=== PATIENT | female | born 1980 | race African-American/Black ===

== ENCOUNTER 2022-11-27 17:09 | Emergency (ER) | payer MEDICAID ==
[~2022-11-27] VITALS: Ht 160 cm; Wt 62.8 kg
[2022-11-27 19:39] LABS: Basophils # (auto) 0.1 10 ^3/uL (0-0.2); Basophils % (auto) 0.5 % (0.0-2.0); Eosinophils # (auto) 0 10 ^3/uL (0-0.8); Eosinophils % (auto) 0.1 % (0.0-7.0); Hematocrit 38.9 % (36.0-46.0); Lymphocytes # (auto) 1.5 10 ^3/uL (0.4-5.4); Lymphocytes % (auto) 11.6 % (10.0-50.0); Mean Corpuscular Hemoglobin 31.5 pg (28.0-32.0); Mean Corpuscular Hgb Conc. 33.5 g/dL (32.0-36.0); Mean Corpuscular Volume 93.9 fL (80.0-100.0); Monocytes # (auto) 0.7 10 ^3/uL (0-1.3); Monocytes % (auto) 5.2 % (0.0-12.0); Neutrophils # (auto) 10.5 10 ^3/uL (1.6-8.6); Neutrophils % (auto) 82.6 % (37.0-80.0); Red Blood Cells 4.14 10^6/uL (4.0-5.20); Red Cell Distribution Width 13.6 % (11.8-14.3); White Blood Cell 12.7 10^3/uL (4.4-10.8)
[2022-11-27 19:58] LABS: Alanine Aminotransferase 15 U/L (7-40); Albumin 4.5 g/dL (3.2-4.8); Alkaline Phosphatase 75 U/L (46-116); Anion Gap 3 (5-15); Aspartate Aminotransferase 10 U/L (13-40); BUN/Creatinine Ratio 7.8 (10.0-20.0); Bilirubin, Total 0.7 mg/dL (0.2-1.0); Blood Urea Nitrogen 10 mg/dL (9-23); Calcium 9.4 mg/dL (8.7-10.4); Carbon Dioxide 28 mmol/L (20-30); Chloride 109 mmol/L (98-107); Glucose 131 mg/dL (74-106); Potassium 3.4 mmol/L (3.5-5.1); Sodium 140 mmol/L (136-145)
[2022-11-27 21:33] LABS: Urine Bacteria NONE SEEN /hpf (None Seen); Urine Blood Negative /uL (Negative); Urine Clarity HAZY (Clear); Urine Color Yellow (Yellow); Urine Hyaline Cast MOD /lpf (0 - 2); Urine Mucus MODERATE (None Seen); Urine Protein, UAD 1+ (Negative); Urine Specific Gravity 1.034 (1.001-1.035); Urine WBC <1 /hpf (0 - 5)
[2022-11-27] MEDS ORDERED: PANT40TA2 PO (23:07)
[2022-11-27 23:33] VITALS: O2SAT 100
[2022-11-27 23:43] VITALS: BP 110/67; PULSE 60; RESP 18
[2022-11-27] MEDS ORDERED: ONDANSETRON ODT 4 MG TAB PO ONE (23:45)
[2022-11-27] MEDS ORDERED: HYDROmorphone HCL 2 MG/ML VL/or syr IM ONE (23:45)
== END 2022-11-28 00:08 | disposition home or self-care (01) ==
LOC: ER 17:09
DX: K27.4 Chronic or unspecified peptic ulcer, site unspecified, with hemorrhage (principal)
CPT/HCPCS: 36415; 74176; 80053; 81001; 85025; 96372; 99285; J1170; Q0162

== ENCOUNTER 2024-02-03 08:06 | Emergency (ER) | payer MEDICAID ==
[~2024-02-03] VITALS: Ht 167.6 cm; Wt 70.0 kg
[~2024-02-03 08:06] MED LIST: PANT40TA2 PO
--- NOTE | 2024-02-03 08:19 | ECG ---
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
[2024-02-03 08:31] VITALS: TEMP 97.8; O2SAT 99
--- NOTE | 2024-02-03 08:31 | ED.PDOC ---
History of Present Illness HPI Comments 43 y/o F, with a Hx of asthma, colitis, pre-DM, HLD, HTN, hypothyroidism, ovarian cysts, IUD placement, and marijuana and tobacco use, is BIBA for c/o left-sided abdominal and back pain, nausea, vomiting, diarrhea, and chills for 3x days, today. Patient endorses on pain radiating from her abdomen to her back and rates it a 10/10 and endorses it feeling similar to when she had colitis in the past. Patient reports no additional relevant or pertinent Hx, including any Hx of kidney stones or possible current . Patient denies having any hematemesis, constipation, urinary symptoms, fever, or other associated symptoms or modifiers at this time. Per EMS report, patient was given 8mg Zofran and 1g Tylenol IV by staff en route. Chief Complaint: Abdominal Pain Time Seen by MD: 08:10 Reviewed Notes: Nurses Notes, Water Resources Technical Officer Notes, Medications, Allergies Allergies: Coded Allergies: NO KNOWN ALLERGIES (Unverified , 02/03/24) Home Meds Active Scripts Hydrocodone-Acetaminophen (Hydrocodone Bitartrate/AC 5-325 mg) 1 Tab Tab, 1 TAB PO Q8HP PRN for 7 Days, #21 TAB Prov:MILLI HERRERA MD 02/03/24 Pantoprazole Sodium Sesquihydr (Protonix) 40 Mg Tab, 40 MG PO DAILY, #30 TAB Prov:CHEIKH VASQUEZ 11/27/22 Information Source: Patient, Emergency Med Personnel Mode of Arrival: EMS Severity: Moderate Timing: Days Duration: Since onset Prehospital treatment: 12 Lead EKG, Neurophysiological Technician, Other (Zofran and Tylenol IV ) Past Medical History PAST MEDICAL HISTORY: Asthma, DM (pre-DM), High Lipids, HTN, Thyroid (hypothyroidism) Past Medical History (Other): colitis Surgical History (Other): 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: Ovarian Cysts (bilateral ovarian cysts, s/p Sx intervention ) Family History Family History: Reviewed,noncontributory to illness, No family hx of Cancer, No family hx of DM, No family hx of Heart blanca, No family hx ofKidney blanca, No family hx of Liver blanca, No family hx of Lung blanca, No family hx of Stroke, Family hx of HTN Social History Smoker: Cigarettes Alcohol: Denies ETOH Use Drugs: Marijuana Lives In: Home Constitutional: reports: chills; denies: diaphoresis, fatigue, fever, malaise, sweats, weakness, others EENTM: denies: blurred vision, double vision, ear bleeding, ear discharge, ear drainage, ear pain, ear ringing, eye pain, eye redness, hearing loss, mouth pain, mouth swelling, nasal discharge, nose bleeding, nose congestion, nose pain, photophobia, tearing, throat pain, throat swelling, voice changes, others Respiratory: denies: cough, hemoptysis, orthopnea, SOB at rest, shortness of breath, SOB with excertion, stridor, wheezing, others Cardiovascular: denies: chest pain, dizzy spells, diaphoresis, Dyspnea on exertion, edema, irregular heart beat, left arm pain, lightheadedness, palpitations, PND, syncope, others Gastrointestinal: reports: abdominal pain, diarrhea, nausea, vomiting; denies: abdomen distended, blood streaked bowels, constipated, dysphagia, difficulty swallowing, hematemesis, melena, poor appetite, poor fluid intake, rectal bleeding, rectal pain, others Genitourinary: denies: abnormal vagina bleeding, burning, dyspareunia, dysuria, flank pain, frequency, hematuria, incontinence, pain, , vagina discharge, urgency, others Neurological: denies: dizziness, fainting, headache, left sided numbness, left sided weakness, numbness, paresthesia, pre-existing deficit, right sided numbness, right sided weakness, seizure, speech problems, tingling, tremors, weakness, others Musculoskeletal: reports: back pain; denies: gout, joint pain, joint swelling, muscle pain, muscle stiffness, neck pain, others Integumetry: denies: bruises, change in color, change in hair/nails, dryness, laceration, lesions, lumps, rash, wounds, others Allergic/Immunocompromised: denies: Difficulty Healing, Frequent Infections, Hives, Itching, others Hematologic/Lymphatic: denies: anemia, blood clots, easy bleeding, easy bruising, swollen glands, others Endocrine: denies: excessive hunger, excessive sweating, excessive thirst, excessive urination, flushing, intolerance to cold, intolerance to heat, unexplained weight gain, unexplained weight loss, others Psychiatric: denies: anxiety, bipolar disorder, depression, hopeless, panic disorder, schizophrenia, sleepless, suicidal, others All Other Systems: Reviewed and Negative Physical Exam General Appearance: Mild Distress HEENT: Normal ENT Inspection, Pharynx Normal, TMs Normal Neck: Full Range of Motion, Non-Tender, Normal, Normal Inspection Respiratory: Chest Non-Tender, Lungs Clear, No Accessory Muscle Use, No Respiratory Distress, Normal Breath Sounds Cardiovascular: No Edema, No JVD, No Murmur, No Gallop, Normal Peripheral Pulses, Regular Rate/Rhythm Breast Exam: Deferred Gastrointestinal: No Organomegaly, Non Tender, No Pulsatile Mass, Normal Bowel Sounds, Soft Genitalia: Deferred Pelvic: Deferred Rectal: Deferred Extremities: No calf tenderness, Normal capillary refill, Normal inspection, Normal range of motion, Non-tender, No pedal edema Musculoskeletal : Apperance: Normal Neurologic: Alert, hobbies and 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 Was a procedure done?: No Differential Dx Considerations may include: colitis, nephrolithiasis, pyelonephritis, cystitis, , spoiled food, gastritis, gastroenteritis, acute abdomen X-Ray, Labs, Meds, VS Vital Signs Date Time Temp Pulse Resp B/P (MAP) Pulse Ox O2 Delivery O2 Flow Rate FiO2 02/03/24 09:11 78 15 128/82 02/03/24 08:42 78 18 130/81 02/03/24 08:31 97.8 78 18 130/81 (97) 99 97.8 02/03/24 08:16 99.0 80 20 140/90 (107) 99 02/03/24 08:14 61 Lab Test 02/03/24 08:28 Range/Units White Blood Count 10.6 4.4-10.8 10^3/uL Red Blood Count 4.28 4.0-5.20 10^6/uL Hemoglobin 13.7 12.2-16.2 g/dL Hematocrit 40.8 36.0-46.0 % Mean Corpuscular Volume 95.5 80.0-100.0 fL Mean Corpuscular Hemoglobin 32.1 H 28.0-32.0 pg Mean Corpuscular Hemoglobin Concent 33.6 32.0-36.0 g/dL Red Cell Distribution Width 13.5 11.8-14.3 % Platelet Count 340 140-450 10^3/uL Mean Platelet Volume 7.2 6.9-10.8 fL Neutrophils (%) (Auto) 67.7 37.0-80.0 % Lymphocytes (%) (Auto) 21.7 10.0-50.0 % Monocytes (%) (Auto) 7.6 0.0-12.0 % Eosinophils (%) (Auto) 2.4 0.0-7.0 % Basophils (%) (Auto) 0.6 0.0-2.0 % Neutrophils # (Auto) 7.2 1.6-8.6 10 ^3/uL Lymphocytes # (Auto) 2.3 0.4-5.4 10 ^3/uL Monocytes # (Auto) 0.8 0-1.3 10 ^3/uL Eosinophils # (Auto) 0.3 0-0.8 10 ^3/uL Basophils # (Auto) 0.1 0-0.2 10 ^3/uL Nucleated Red Blood Cells 0.1 % Sodium Level 140 136-145 mmol/L Potassium Level 3.6 3.5-5.1 mmol/L Chloride Level 108 H 98-107 mmol/L Carbon Dioxide Level 27 20-31 mmol/L Anion Gap 5 5-15 Blood Urea Nitrogen 13 9-23 mg/dL Creatinine 1.08 H 0.550-1.02 mg/dL Glomerular Filtration Rate Calc 65 >90 mL/min BUN/Creatinine Ratio 12.0 10.0-20.0 Serum Glucose 95 74-106 mg/dL Calcium Level 9.7 8.7-10.4 mg/dL Total Bilirubin 1.0 0.2-1.0 mg/dL Aspartate Amino Transferase (AST) 16 13-40 U/L Alanine Aminotransferase (ALT) 20 7-40 U/L Alkaline Phosphatase 72 46-116 U/L Total Protein 7.1 5.7-8.2 g/dL Albumin 4.5 3.2-4.8 g/dL Current Medications Medications (Trade) Dose Ordered Sig/Clint Route Start Time Stop Time Status Last Admin Sodium Chloride 1,000 ml @ 1,000 mls/hr Q1H ONCE IVB 02/03/24 08:30 02/03/24 09:29 DC 02/03/24 08:42 Morphine Sulfate 4 mg ONCE ONCE IV 02/03/24 08:30 02/03/24 08:31 DC 02/03/24 08:42 Pantoprazole Sodium (Protonix) 40 mg ONCE ONCE IV 02/03/24 08:30 02/03/24 08:31 DC 02/03/24 08:38 Prochlorperazine Edisylate (Compazine Inj) 10 mg ONCE ONCE IV 02/03/24 08:30 02/03/24 08:31 DC 02/03/24 08:37 CT scan of the abdomen and pelvis shows: IMPRESSION: 1. Very limited examination due to motion artifact. 2. Suspected cystic structure in the right adnexal region measuring up to 4.6 cm, possible ovarian cyst. Possible smaller left ovarian cyst. Correlate with clinical findings. If clinically indicated, ultrasound could be obtained. 3. IUD appears to be in the fundal endometrial canal , in grossly expected position. 4. No small bowel obstruction. The patient's CBC and chemistry panel are within normal limits An IV Hep-Lock was established The patient was given a 1 L bolus of normal saline The patient was given morphine 4 mg IV push for the pain The patient was given Protonix 40 mg IV push The patient was given Compazine 10 mg IV push The patient was being discharged with a prescription of Zofran as well as [place] The patient will return to the emergency department's condition worsens Images Reviewed?: Images reviewed and evaluated by me Time of 1ST Reevaluation: 08:40 Reevaluation 1ST: Unchanged Time of 2ND Reevaluation: 16:23 Reevaluation 2ND: Improved Patient Education/Counseling: Diagnosis, Treatment, Prognosis, Need For Follow Up Family Education/Counseling: No Family Present Departure 1 Departure Time of Disposition: 16:22 Impression: Primary Impression: Cannabinoid hyperemesis syndrome Additional Impression: Abdominal pain Qualified Codes: R10.9 - Unspecified abdominal pain Disposition: 01 HOME / SELF CARE / HOMELESS Condition: Fair e-Prescriptions Hydrocodone-Acetaminophen (Hydrocodone Bitartrate/AC 5-325 mg) 1 Tab Tab 1 TAB PO Q8HP PRN for 7 Days, #21 TAB Prov: MILLI HERRERA MD 02/03/24 Discharged With: Self Critical Care Note Critical Care Time?: No Stability Stability form required: No Heart Score Heart Score: Heart Score Response (Comments) Value History N/A 0 EKG N/A 0 Age N/A 0 Risk Factors N/A 0 Troponin N/A 0 Total 0 I personally scribed for MILLI HERRERA MD ([email or web address]) on 02/03/24 at 08:31. Electronically submitted by Loi Castaneda ([email or web address]). MILLI HERRERA MD Feb 03, 2024 08:31
[2024-02-03] MEDS: PROCHLORPERAZINE EDISYLATE 5 MG/ML 2ML VIAL IV ONE (08:37)
[2024-02-03] MEDS: PANTOPRAZOLE 40 MG/10 ML VIAL INJ IV ONE (08:38)
[2024-02-03] MEDS: SODIUM CHLORIDE 0.9% 1,000 ML IVB ONE (08:42)
[2024-02-03] MEDS: MORPHINE SULFATE 4 MG/ML SYR/VIAL IV ONE (08:42)
[2024-02-03 08:43] LABS: Basophils # (auto) 0.1 10 ^3/uL (0-0.2); Basophils % (auto) 0.6 % (0.0-2.0); Eosinophils # (auto) 0.3 10 ^3/uL (0-0.8); Eosinophils % (auto) 2.4 % (0.0-7.0); Hematocrit 40.8 % (36.0-46.0); Hemoglobin 13.7 g/dL (12.2-16.2); Lymphocytes # (auto) 2.3 10 ^3/uL (0.4-5.4); Lymphocytes % (auto) 21.7 % (10.0-50.0); Mean Corpuscular Hemoglobin 32.1 pg (28.0-32.0); Mean Corpuscular Hgb Conc. 33.6 g/dL (32.0-36.0); Mean Corpuscular Volume 95.5 fL (80.0-100.0); Monocytes # (auto) 0.8 10 ^3/uL (0-1.3); Monocytes % (auto) 7.6 % (0.0-12.0); Neutrophils # (auto) 7.2 10 ^3/uL (1.6-8.6); Neutrophils % (auto) 67.7 % (37.0-80.0); Nucleated Red Blood Cells % 0.1 %; Platelet Count (auto) 340 10^3/uL (140-450); Red Blood Cells 4.28 10^6/uL (4.0-5.20); Red Cell Distribution Width 13.5 % (11.8-14.3); White Blood Cell 10.6 10^3/uL (4.4-10.8)
[2024-02-03 08:55] LABS: Alanine Aminotransferase 20 U/L (7-40); Albumin 4.5 g/dL (3.2-4.8); Alkaline Phosphatase 72 U/L (46-116); Anion Gap 5 (5-15); Aspartate Aminotransferase 16 U/L (13-40); Blood Urea Nitrogen 13 mg/dL (9-23); Calcium 9.7 mg/dL (8.7-10.4); Carbon Dioxide 27 mmol/L (20-31); Glucose 95 mg/dL (74-106); Potassium 3.6 mmol/L (3.5-5.1); Sodium 140 mmol/L (136-145)
[2024-02-03 08:56] LABS: Total Protein 7.1 g/dL (5.7-8.2)
[2024-02-03 08:57] LABS: Chloride 108 mmol/L (98-107)
--- NOTE | 2024-02-03 09:01 | DVH ---
CLINICAL INFORMATION: 43 years old, Female; left abd pain. TECHNIQUE: Axial CT images of the abdomen and pelvis were obtained without IV contrast. Coronal and sagittal reformatted images were obtained, reviewed, and stored. Evaluation of the parenchymal organs is limited without IV contrast. Evaluation of the bowel and mesentery is limited without oral contra st. All CT scans at this medical facility are performed using dose modulation techniques as appropria te to a performed exam including the following: Automated exposure control was utilized; adjustment o f the MA and/or KV according to patient size; and use of iterative reconstruction technique. CTDIvol = 5.49, 0.07, 0.07 mGy DLP = 278.13 mGy-cm COMPARISON: CT CT AB PEL WO CON-NO ORAL OR IV on DOS: 11/27/22 FINDINGS: Motion limited study. Lung bases: Respiratory motion artifact limits evaluation. Liver: Grossly unremarkable given the limitations of the exam. Biliary: No calcified gallstones visualized. Spleen: Grossly unremarkable given the limitations of the exam. Pancreas: Grossly unremarkable. Adrenal glands: Poorly visualized. Kidneys: No hydronephrosis and no renal or ureteral calculi visualized. Aorta/Vascular: Likely mild atherosclerotic calcification. No abdominal aortic aneurysm visualized. Retroperitoneum: Limited evaluation. Bowel/mesentery: No evidence of small-bowel obstruction. Appendix is not visualized. Pelvic organs: IUD visualized in the fundal endometrial canal. Low-density ovoid structure in the rig ht adnexal region measuring up to 4.6 cm, possible ovarian cyst. Possible smaller cystic structure in the left adnexal region measuring up to 2 cm. Bladder: Poorly visualized. Abdominal wall: Grossly unremarkable. Bones: No definite acute fracture visualized. IMPRESSION: 1. Very limited examination due to motion artifact. 2. Suspected cystic structure in the right adnexal region measuring up to 4.6 cm, possible ovarian cy st. Possible smaller left ovarian cyst. Correlate with clinical findings. If clinically indicated, ultrasound could be obtained. 3. IUD appears to be in the fundal endometrial canal , in grossly expected position. 4. No small bowel obstruction.
[2024-02-03 09:11] VITALS: BP 128/82; PULSE 78; RESP 15
[2024-02-03] MEDS ORDERED: HYDR-4902 PO (16:21)
== END 2024-02-03 16:40 | disposition home or self-care (01) ==
LOC: EDBD 08:06 → ER 08:06
DX: F12.188 Cannabis abuse with other cannabis-induced disorder (principal); E11.9 Type 2 diabetes mellitus without complications; E78.5 Hyperlipidemia, unspecified; E03.9 Hypothyroidism, unspecified; F17.210 Nicotine dependence, cigarettes, uncomplicated; I10 Essential (primary) hypertension; J45.909 Unspecified asthma, uncomplicated; Z79.899 Other long term (current) drug therapy
CPT/HCPCS: 36415; 74176; 80053; 85025; 93005; 96374; 96375; 99285; J0780; J2270; J2470; J7030